=== PATIENT | female | born 1960 | race Caucasian/White ===

== ENCOUNTER → 2016-08-08 | Outpatient (CLI) | payer OTHER ==
[~2016-08-08] MED LIST: FEXO1TAB46 PO; FLUT0.15 NAE; OMEP20TA PO; OMEP40CA41 PO
--- NOTE | 2016-08-08 15:07 | MAMMOGRAPHY REPORT ---
BILATERAL DIGITAL SCREENING MAMMOGRAM TOMOSYNTHESIS WITH CAD: 08/08/2016 CLINICAL HISTORY: Routine screening. Patient has no complaints. TECHNIQUE: Breast tomosynthesis in addition to standard 2D mammography was performed. Current study was also evaluated with a Computer Aided Detection (CAD) system. COMPARISON: Comparison is made to exams dated: 08/07/2015 mammogram, 08/04/2014 mammogram, 08/03/2013 ma mmogram, 03/09/2012 mammogram, 02/26/2011 mammogram, and 02/25/2010 mammogram - [facility]. BREAST COMPOSITION: There are scattered areas of fibroglandular density in both breasts. FINDINGS: No suspicious masses, calcifications, or areas of architectural distortion are noted in e ither breast. There has been no significant interval change compared to prior exams. IMPRESSION: ACR BI-RADS CATEGORY 1: NEGATIVE There is no mammographic evidence of malignancy. A 1 year screening mammogram is recommended. The p atient will receive written notification of the results. Approximately 10% of breast cancers are not detected with mammography. A negative mammographic repor t should not delay biopsy if a clinically suggestive mass is present. Annita Waggoner M.D. ah/:08/08/2016 13:59:38 Plate Glass Grinder: Cookie Crespo RT(Vane)(M)(BD), [facility] letter sent: Normal 1/2 BI-RADS Code: ACR BI-RADS Category 1: Negative
== END | disposition home or self-care (01) ==
LOC: C.MAMM 11:06
PROVIDERS: ATTEND Family Medicine
DX: Z12.31 Encounter for screening mammogram for malignant neoplasm of breast (principal)

== ENCOUNTER → 2017-03-06 | Day surgery (SDC) | payer OTHER ==
[2017-03-05 12:03] VITALS: Ht 163.8 cm; Wt 136.4 kg
[~2017-03-06] VITALS: Ht 163.8 cm; Wt 136.4 kg
[~2017-03-06] MED LIST changes: +500ML BSSPLUS 0.5ML EPI1:1000 IRRIG ONE; +ACETAMINOPHEN 325 MG TAB PO PRN; +ATROPINE SULFATE 0.1 MG/ML 5ML SYR IV PRN; +ATROPINE SULFATE 1% OP OINT PER APPLICATION CHARGE ONE; +ATROPINE SULFATE 1% OP SOLN 2 ML BTL ONE; +BSS FLUSH ONE; +BUPIVACAINE HCL 0.75% 10 ML AMP/VIAL ONE; +CEFAZOLIN SOD 1 GM VIAL ONE; +DEXAMETHASONE SOD INJ 4 MG/ML VIAL ONE; +EpHEDrine SULFATE INJ 50 MG/ML AMP IV PRN; +EpINEphrine INJ 1MG/ML AMP 1 MG/ML AMP ONE; +FENTANYL CITRATE INJ 50 MCG/1 ML 2 ML VIAL IV PRN; +FENTANYL CITRATE INJ 50 MCG/1 ML 2 ML VIAL ONE; -FEXO1TAB46 PO; +FLUMAZENIL 0.1 MG/1 ML 10 ML VIAL IV PRN; +HYALURONIDASE HUMAN 150 UNIT/ML INJ ONE; +HYDROmorphone INJ 2 MG/ML SYR/VIAL IV PRN; +LABETALOL HCL IV 5 MG/ML 20ML IV PRN; +LACTATED RINGER'S 1000ML 1,000 ML IV SCH; +LIDOCAINE HCL 2% 2 ML VIAL (20MG/ML) ONE; +MEPERIDINE HCL 25 MG/ML CARP IV PRN; +MIDAZOLAM HCL 1 MG/ML 2ML VIAL ONE; +NALOXONE HCL 0.4 MG/1 ML VIAL/CARP IV PRN; +NEOMYCIN/POLYMYX/DEXAMETH OP OINT PER APP CHARGE ONE; +NURSING VERBAL MED ORDER ONE; +OCUCOAT 1 ML SOLN IO ONE; -OMEP20TA PO; +ONDANSETRON INJ 2 MG/ML 2 ML VIAL IV PRN; +ONDANSETRON INJ 2 MG/ML 2 ML VIAL ONE; +PHENYLEPHRINE 100MCG/ML 5ML SYR IV PRN; +POVIDONE-IODINE OP SOLN (SURGERY CNTR CHARGING ONLY) ONE; +PROPARACAINE 0.5% OP SOLN PER DROP CHARGE OPB SCH; +PROPOFOL IV EMULSION 10 MG/ML 20 ML VIAL IV ONE; +SODIUM CHLORIDE 0.9% 500ML IV SCH; +TIMOLOL MALEATE 0.5% OP SOLN PER DROP CHARGE ONE; +VANCOMYCIN HCL 1000MG/20ML VIAL ONE
[2017-03-06] MEDS: PHENYLEPHRINE HCL 2.5% OP SOLN PER DROP CHARGE OPB SCH ×2 (06:48→06:53)
[2017-03-06] MEDS: TROPICAMIDE 1% OP SOLN PER DROP CHARGE OPB SCH ×2 (06:49→06:54)
--- NOTE | 2017-03-06 06:52 | History & Physical Bridge - SC ---
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 I have examined the patient, reviewed the History & Physical and in the interval since the performance of the History & Physical I have noted the following changes of clinical significance: No changes noted
--- NOTE | 2017-03-06 09:03 | [facility] Operative Report ---
Operative Report Date of Service Mar 06, 2017. Operative Report PREOPERATIVE DIAGNOSIS: 1. Retinal detachment in the left eye. ICD 10: H33.022. 2. 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 PROCEDURE: 1. Pars plana vitrectomy, 23 gauge; Fluid-air exchange; Endolaser; Air-gas exchange with SF6 20%. All to the left eye. CPT CODE: 88351 LT + modifier 59 2. Laser of the right eye. CPT CODE: 71397 RT SURGEON: Sandip Nugent D.O. COMPLICATIONS: None. ESTIMATED BLOOD LOSS: None. SPECIMENS: None. ANESTHESIA: Retrobulbar block and general. INDICATIONS FOR PROCEDURE: Surgery is indicated to decrease risk of vision loss. CONSENT: The risks, benefits and alternatives were discussed with the patient including but not limited to decreased visual acuity, failure to achieve desired results, loss of the eye, infection, pain, glaucoma, lens changes, retinal tears, retinal detachment, the need for more procedures, drooping of the eyelid, blindness, and double vision. The patient is aware of risks and consents to the surgery. Consent is signed and on the chart. OPERATION AND FINDINGS: The patient was brought to the operating room where the patient was identified by name, date, and medical record number. The surgical site was confirmed with the informed written consent. The patient was sedated by the anesthesiology team after which a 50:50 mixture of 2% lidocaine and 0.75% bupivacaine with hyaluronidase was administered in a standard retrobulbar fashion. A total of 4 ml was administered without difficulty. Attention was first turned toward the right eye and prophylactic laser procedure was performed first. A laser indirect ophthalmoscope was used to apply laser barrier around areas of lattice degeneration and retinal defects in the right eye. After this attention was turned toward repair of the retinal detachment in the left eye. The patient was prepped and draped in the usual sterile manner for retinal surgery. A wire lid speculum was placed and an Antwan 23-gauge trocar cannula system was employed. The inferior temporal trocar cannula was first placed in an angled fashion 3.75mm posterior to the surgical limbus and the infusion cannula was inserted into this cannula after which the intravitreal position was verified prior to turning the infusion on. Two more trocar cannulas were then inserted in an angled fashion, one in the superior temporal, and one in the superior nasal quadrant both 3.75mm posterior to the surgical limbus. A light pipe and vitrector were then introduced into the eye and the BIOM wide angle viewing system was brought into place. Posterior inspection revealed a retinal detachment from 9 to 12 o'clock with the inciting retinal break at 11 o'clock. There was extensive lattice degeneration throughout the periphery. Standard core vitrectomy was performed and the vitreous was insured to be totally detached from the posterior pole with the aid of the vitrector. The vitreous base was shaved for 360 degrees. Fluid air exchange was performed and the subretinal fluid was drained through a small retinotomy site that was fashioned superior to the optic nerve. Endolaser was then used to place laser around the inciting retinal break and the drainage retinotomy as well as around all areas of lattice degeneration and defects. Next , an air gas exchange was performed with SF620% for a complete fill of the eye. The trocar cannulas were then removed and found to be air tight. The intraocular pressure was found to be within normal limits by palpation and subconjunctival injections of Kefzol and dexamethasone were administered inferiorly and superiorly. The wire lid speculum was removed. Maxitrol, atropine and timolol were applied to the surface of the eye. A light patch and shield were taped over the surface of the eye and the patient left the Operating Room in stable condition having tolerated the procedure well. DISPOSITION: A gas bracelet was placed on the patient's wrist and gas precautions reviewed as well as the positioning instructions. The patient has an appointment the following morning in the Ophthalmology Clinic. The patient is to call immediately if there are any problems overnight. I attest to the content of the Intraoperative Record and any orders documented therein. Any exceptions are noted below.
--- NOTE | 2017-03-06 09:04 | Discharge Instructions-SurgCtr ---
Discharge Instructions Date of Service Mar 06, 2017. Visit Reason for Visit: Left Eye Retinal Detachment Discharge Discharge Diagnosis / Problem: same Discharge Goals Goal(s): Improve function Activity Recommendations Activity Limitations: per Instructions/Follow-up section Anesthesia . Post Anesthesia Instructions: If you have had General Anesthesia or IV Sedation: * Do not drive today. * Resume driving when surgeon permits. * Do not make important decisions or sign legal documents today. * Call surgeon for: 1. Temperature elevations greater than 101 degrees F. 2. Uncontrollable pain. 3. Excessive bleeding. 4. Persistent nausea and vomiting. 5. Medication intolerance (nausea, vomiting or rash). * For nausea and vomiting use only clear liquids such as: tea, soda, bouillon until nausea subsides, then gradually increase diet as tolerated. * If you have any concerns or questions, call your surgeon's office. If physician is unavailable and it is an emergency, call 911 or go to the nearest emergency room. . Diet Recommendations Home Diet: resume previous diet Procedures Procedures Performed: Left Eye 23 Gauge Vitrectomy with Laser and SF6 Gas Instillation; Right Eye Laser Pending Studies Studies pending at discharge: no Medical Emergencies . Who to Call and When: Medical Emergencies: If at any time you feel your situation is an emergency, please call 911 immediately. . Non-Emergent Contact Non-Emergency issues call your: Lepidopterist . . "Provider Documentation" section prepared by Sandip Nugent. .
--- NOTE | 2017-03-06 09:28 | Anesthesia Progress Nt - [facility] ---
Anesthesia Post Op Note Date & Time Mar 06, 2017 at 09:28 Vital Signs Pain Intensity: 0 Vital Signs Past 12 Hours Date Time Temp Pulse Resp B/P (MAP) Pulse Ox O2 Delivery O2 Flow Rate FiO2 03/06/17 09:23 68 19 03/06/17 09:23 69 19 95 03/06/17 09:20 150/87 03/06/17 09:18 36.4 69 16 150/87 97 Room Air 03/06/17 09:18 67 11 94 03/06/17 09:18 67 11 03/06/17 09:15 138/83 03/06/17 09:13 65 14 98 03/06/17 09:13 65 14 03/06/17 09:10 155/91 03/06/17 09:08 74 19 03/06/17 09:08 74 19 94 03/06/17 09:05 141/87 03/06/17 09:03 68 15 99 03/06/17 09:03 70 15 03/06/17 09:00 158/81 03/06/17 08:58 71 10 99 03/06/17 08:58 69 10 03/06/17 08:57 36.3 74 16 169/94 100 Diffusion Mask 03/06/17 08:55 149/80 03/06/17 08:53 73 13 100 03/06/17 08:53 72 13 03/06/17 08:50 160/89 03/06/17 08:49 169/94 03/06/17 06:37 36.4 75 22 180/79 (112) 98 Room Air Notes Mental Status: alert / awake / arousable, participated in evaluation Pt Amnestic to Procedure: Yes Nausea / Vomiting: adequately controlled Pain: adequately controlled Airway Patency, RR, SpO2: stable & adequate BP & HR: stable & adequate Hydration State: stable & adequate Anesthetic Complications: no major complications apparent
[2017-03-06 09:33] VITALS: TEMP 36.5
[2017-03-06 09:52] VITALS: BP 159/92; PULSE 66; O2SAT 98
== END | disposition home or self-care (01) ==
LOC: X.SURG 06:12
PROVIDERS: ATTEND Ophthalmology
DX: H33.022 Retinal detachment with multiple breaks, left eye (principal); H35.411 Lattice degeneration of retina, right eye; J45.909 Unspecified asthma, uncomplicated; F32.9 Major depressive disorder, single episode, unspecified; E78.5 Hyperlipidemia, unspecified; K21.9 Gastro-esophageal reflux disease without esophagitis; Z87.891 Personal history of nicotine dependence; Z82.49 Family history of ischemic heart disease and other diseases of the circulatory system; Z83.3 Family history of diabetes mellitus; Z82.3 Family history of stroke; G47.33 Obstructive sleep apnea (adult) (pediatric); E66.9 Obesity, unspecified

== ENCOUNTER 2017-07-06 12:15 | Emergency (ER) | payer OTHER ==
[~2017-07-06] VITALS: Ht 163.8 cm; Wt 139.4 kg
[~2017-07-06 12:15] MED LIST changes: -500ML BSSPLUS 0.5ML EPI1:1000 IRRIG ONE; -ACETAMINOPHEN 325 MG TAB PO PRN; -ATROPINE SULFATE 0.1 MG/ML 5ML SYR IV PRN; -ATROPINE SULFATE 1% OP OINT PER APPLICATION CHARGE ONE; -ATROPINE SULFATE 1% OP SOLN 2 ML BTL ONE; -BSS FLUSH ONE; -BUPIVACAINE HCL 0.75% 10 ML AMP/VIAL ONE; -CEFAZOLIN SOD 1 GM VIAL ONE; -DEXAMETHASONE SOD INJ 4 MG/ML VIAL ONE; -EpHEDrine SULFATE INJ 50 MG/ML AMP IV PRN; -EpINEphrine INJ 1MG/ML AMP 1 MG/ML AMP ONE; -FENTANYL CITRATE INJ 50 MCG/1 ML 2 ML VIAL IV PRN; -FENTANYL CITRATE INJ 50 MCG/1 ML 2 ML VIAL ONE; -FLUMAZENIL 0.1 MG/1 ML 10 ML VIAL IV PRN; -HYALURONIDASE HUMAN 150 UNIT/ML INJ ONE; -HYDROmorphone INJ 2 MG/ML SYR/VIAL IV PRN; -LABETALOL HCL IV 5 MG/ML 20ML IV PRN; -LACTATED RINGER'S 1000ML 1,000 ML IV SCH; -LIDOCAINE HCL 2% 2 ML VIAL (20MG/ML) ONE; -MEPERIDINE HCL 25 MG/ML CARP IV PRN; -MIDAZOLAM HCL 1 MG/ML 2ML VIAL ONE; -NALOXONE HCL 0.4 MG/1 ML VIAL/CARP IV PRN; -NEOMYCIN/POLYMYX/DEXAMETH OP OINT PER APP CHARGE ONE; -NURSING VERBAL MED ORDER ONE; -OCUCOAT 1 ML SOLN IO ONE; -ONDANSETRON INJ 2 MG/ML 2 ML VIAL IV PRN; -ONDANSETRON INJ 2 MG/ML 2 ML VIAL ONE; -PHENYLEPHRINE 100MCG/ML 5ML SYR IV PRN; -POVIDONE-IODINE OP SOLN (SURGERY CNTR CHARGING ONLY) ONE; -PROPARACAINE 0.5% OP SOLN PER DROP CHARGE OPB SCH; -PROPOFOL IV EMULSION 10 MG/ML 20 ML VIAL IV ONE; -SODIUM CHLORIDE 0.9% 500ML IV SCH; -TIMOLOL MALEATE 0.5% OP SOLN PER DROP CHARGE ONE; -VANCOMYCIN HCL 1000MG/20ML VIAL ONE
[2017-07-06 12:35] VITALS: TEMP 36.7; Ht 163.8 cm; Wt 139.4 kg
[2017-07-06 15:06] LABS: HEMATOCRIT 43.2 % (37-47); HEMOGLOBIN 14.7 g/dL (12.0-16.0); MEAN CELL VOLUME 88.2 fL (80-100); MEAN PLATELET VOLUME 10.5 fL (7.4-10.4); PLATELET COUNT 227 K/uL (130-400); RED CELL DISTRIBUTION WIDTH CV 13.8 % (11.5-14.5); WHITE BLOOD COUNT 7.12 K/uL (4.8-10.8)
[2017-07-06 15:14] LABS: PTT PATIENT 24.5 SECONDS (21.0-31.0)
[2017-07-06 15:28] LABS: ALBUMIN 4.1 gm/dl (3.4-5.0); CALCIUM 9.5 mg/dl (8.5-10.1); CREATININE 0.97 mg/dl (0.60-1.20); POTASSIUM 3.7 mmol/L (3.5-5.1)
[2017-07-06 15:33] LABS: CKMB 0.8 ng/ml (0.5-3.6); TOTAL PROTEIN 7.8 gm/dl (6.4-8.2)
[2017-07-06] MEDS ORDERED: DEXT30TA7 PO (15:35)
--- NOTE | 2017-07-06 15:46 | DIAGNOSTIC IMAGING REPORT ---
CHEST ONE VIEW PORTABLE HISTORY: 57 years-old Female shortness of breath, chest pain acute shortness of breath with atypical chest pain COMPARISON: None available TECHNIQUE: Portable AP view of the chest FINDINGS: Cardiomediastinal and hilar silhouettes are within normal limits. No pneumothorax, pleural effusion, focal airspace consolidation or overt pulmonary edema. Bones of the chest appear grossly intact. Degenerative changes are seen about the bilateral shoulders and spine. Suggested calcific tendinosis about the left shoulder. IMPRESSION: No acute process. The above report was generated using voice recognition software. It may contain grammatical, syntax or spelling errors. Electronically signed by: Fabio Valero M.D. 07/06/2017 3:45 PM Dictated Date/Time: 07/06/2017 3:44 PM
[2017-07-06] MEDS ORDERED: ALBUT/IPRATROP 3MG/0.5MG NEB 3 ML VIAL INH STA (15:55)
[2017-07-06 16:30] LABS: INFLUENZA B ANTIGEN Neg for Influ B (NEG)
[2017-07-06] MEDS ORDERED: AZITHROMYCIN 250 MG TAB PO STA (17:06)
[2017-07-06] MEDS ORDERED: AZIT-60 PO (17:09)
--- NOTE | 2017-07-06 17:10 | EMERGENCY ROOM VISIT NOTE ---
History First contact with patient: 15:05 Chief Complaint: RESPIRATORY PROBLEMS Stated Complaint: TROUBLE BREATHING, SINUS PRESSURE Nursing Triage Summary: patient states she has had sinus pressure and slight cough for the past week. taking otc medications without relief. History of Present Illness The patient is a 57 year old female who presents to the Emergency Room via private vehicle referred by family doctor with complaints of "trouble breathing , sinus pressure". The patient states that one week ago she began with exhaustion, sinus pressure, frontal headache, chills, and left ear pain. She states that her temperature yesterday was 99.4F. There is nasal congestion and watery eyes. She also notes that since Thursday she has had some chest pressure. It is not worse with exertion. She denies any nausea, vomiting, diarrhea, constipation, rhinorrhea, hearing loss. She has been trying Mucinex without relief. She feels as though something is sitting on her chest but notes she has felt this before when she is ill. No history of heart attack. She denies any history of hypertension. She notes that she does wear CPAP at night. Review of Systems A complete 10-point Review of Systems was discussed with the patient, with pertinent positives and negatives listed in the History of Present Illness. All remaining Review of Systems questions can be considered negative unless otherwise specified. Past Medical/Surgical History GERD Social History Smoking Status: Never Smoker Alcohol Use: none Marital Status: Current/Historical Medications Scheduled Azithromycin (Zithromax), 250 MG PO DAILY Fluticasone Propionate (Nasal) (Flonase Allergy Relief), 2 SPRAYS JUNIE QAM Omeprazole (Prilosec), 40 MG PO QAM Scheduled PRN Dextromethorphan-Guaifenesin (Mucinex Dm), 1 TAB PO Q4 PRN for PRN Physical Exam Vital Signs Date Time Temp Pulse Resp B/P (MAP) Pulse Ox O2 Delivery O2 Flow Rate FiO2 07/06/17 16:20 154/100 07/06/17 14:52 74 18 179/109 97 Room Air 07/06/17 12:35 97 Room Air 07/06/17 12:35 36.7 74 18 238/108 97 Room Air Physical Exam VITAL SIGNS - Vital signs and nursing notes were reviewed. Hypertensive. This was done manually and found to be 154/100. GENERAL -57-year-old female appearing her stated age who is in no acute distress. Communicates well with provider and answers questions appropriately. SKIN - Without rashes. No meningeal or petechial rash. HEAD - NC/AT. EYES - PERRL with EOMI bilaterally. Sclera anicteric. No hyphema or subconjunctival hemorrhage. EARS - No deformities of external structures noted on gross examination bilaterally. No pain elicited with palpation of the tragus bilaterally. External auditory canals without discharge or otorrhea. Tympanic membranes pearly taylor without retraction or bulging. No fluid or purulent material visualized behind the TM. Handle of malleus, umbo, cone of light, pars tensa/ flaccid all easily visualized. NOSE - Midline and without cyanosis. No epistaxis or purulent drainage noted. Septum midline without deviation or septal hematoma noted. MOUTH/OROPHARYNX - Without perioral cyanosis. Buccal mucosa pink and moist and without leukoplakia. Tongue midline with equal elevation of palate bilaterally. No tonsillar hypertrophy, erythema, or exudates noted. Fair dentition noted. NECK - Neck with FROM. Supple to palpation. No lymphadenopathy noted. No nuchal rigidity. LUNGS - Chest wall symmetric without accessory muscle use, intercostals retractions, or central cyanosis. Normal vesicular breath sounds CTA B/L. No wheezes, rales, or rhonchi appreciated. CARDIAC - RRR with S1/S2. No murmur, rubs, or gallops appreciated. There is anterior chest tenderness to palpation. ABDOMEN - Abdominal contour normal without pulsations or visible masses. BS normoactive all four quadrants. No tenderness, palpable masses, hepatosplenomegaly, or ascites noted. EXTREMITIES - No clubbing or peripheral cyanosis. +5/5 strength noted in UE/LE bilaterally. NEUROLOGIC - Cranial nerves II through XII grossly intact. Sensory intact to light touch throughout. PSYCH - A&O, and cooperates fully with examiner. Pt is very pleasant and interacts well with examiner. Medical Decision & Procedures ER Provider Diagnostic Interpretation: CHEST ONE VIEW PORTABLE HISTORY: 57 years-old Female shortness of breath, chest pain acute shortness of breath with atypical chest pain COMPARISON: None available TECHNIQUE: Portable AP view of the chest FINDINGS: Cardiomediastinal and hilar silhouettes are within normal limits. No pneumothorax, pleural effusion, focal airspace consolidation or overt pulmonary edema. Bones of the chest appear grossly intact. Degenerative changes are seen about the bilateral shoulders and spine. Suggested calcific tendinosis about the left shoulder. IMPRESSION: No acute process. The above report was generated using voice recognition software. It may contain grammatical, syntax or spelling errors. Electronically signed by: Fabio Valero M.D. 07/06/2017 3:45 PM Dictated Date/Time: 07/06/2017 3:44 PM Laboratory Results 07/06/17 14:55 07/06/17 14:55 Test 07/06/17 14:55 07/06/17 15:03 07/06/17 15:45 Red Blood Count 4.90 M/uL (4.2-5.4) Mean Corpuscular Volume 88.2 fL (80-100) Mean Corpuscular Hemoglobin 30.0 pg (25-34) Mean Corpuscular Hemoglobin Concent 34.0 g/dl (32-36) RDW Standard Deviation 45.0 fL (36.4-46.3) RDW Coefficient of Variation 13.8 % (11.5-14.5) Mean Platelet Volume 10.5 fL (7.4-10.4) Prothrombin Time 10.6 SECONDS (9.0-12.0) Prothromb Time International Ratio 1.0 (0.9-1.1) Activated Partial Thromboplast Time 24.5 SECONDS (21.0-31.0) Partial Thromboplastin Ratio 0.9 D-Dimer 380 ug/L FEU (0-500) Anion Gap 7.0 mmol/L (3-11) Est Creatinine Clear Calc Drug Dose 92.3 ml/min Estimated GFR () 76.2 Estimated GFR (Non- 65.8 BUN/Creatinine Ratio 11.6 (10-20) Calcium Level 9.5 mg/dl (8.5-10.1) Total Bilirubin 0.4 mg/dl (0.2-1) Aspartate Amino Transf (AST/SGOT) 28 U/L (15-37) Alanine Aminotransferase (ALT/SGPT) 56 U/L (12-78) Alkaline Phosphatase 93 U/L (45-117) Total Creatine Kinase 122 U/L (26-192) Creatine Kinase MB 0.8 ng/ml (0.5-3.6) Creatine Kinase MB Ratio 0.7 (0-3.0) Total Protein 7.8 gm/dl (6.4-8.2) Albumin 4.1 gm/dl (3.4-5.0) Globulin 3.7 gm/dl (2.5-4.0) Albumin/Globulin Ratio 1.1 (0.9-2) Thyroid Stimulating Hormone (TSH) 3.280 uIu/ml (0.300-4.500) Bedside Troponin I < 0.030 ng/ml (0-0.045) Influenza Type A Antigen Neg for Influ A (NEG) Influenza Type B Antigen Neg for Influ B (NEG) Medications Administered Medications (Trade) Dose Ordered Sig/Isis Route Start Time Stop Time Status Last Admin Dose Admin Albuterol/ Ipratropium (Duoneb) 3 ml NOW STAT INH 07/06/17 15:55 07/06/17 15:56 DC 07/06/17 16:07 3 ML Medical Decision Patient was seen and evaluated as above in room C5. Review was performed of nursing notes and vital signs. After obtaining a thorough history and physical examination the above work up was performed. She presents to us today with sinus congestion, and chest pressure. No history of cardiac events. Chest x- ray obtained. Negative for acute process. Bedside EKG per my interpretation does reveal normal sinus rhythm, rate of 71 bpm. No ectopy or ischemic change. With blood work review, CBC reveals no leukocytosis or anemia. Coags normal. D-dimer negative. Metabolic panel reveals no evidence of kidney or liver failure. CK-MB, and troponin negative. TSH normal. Patient's chest pain is been ongoing since Thursday therefore this is been certainly greater than 6 hours. One negative troponin I believe is sufficient. Negative for influenza A. She was given a DuoNeb without relief. With the sinus congestion, and constitutional symptoms preceding the chest pressure, and with the chest pressure being reproducible on exam I suspect this is all likely an infection that can be treated with azithromycin. This is likely sinus infection that is causing her symptoms that likely began as viral but now may be bacterial. She is to follow with her family doctor. There is no exertional symptoms with the chest pressure. Because she has no history of underlying hypertension I will recommend she follow-up with the family doctor for review of this but do not want to initiate meds at this time as this HTN could be only while here in the emergency department. The patient was educated upon management, had questions answered prior to discharge, and was discharged home in good condition. Case was discussed with the attending physician. I attest that I have personally reviewed the patient medication list. I attest that I have reviewed the patient's blood pressure and it was found to be elevated, she is to follow with the family doctor In the evaluation and treatment of this patient the following differential diagnoses were entertained: Sinusitis, CO, influenza, PE, pericarditis, costochondritis, bronchitis, pneumonia, among others. Impression Primary Impression: Sinusitis Additional Impression: Chest discomfort Departure Information Dispostion Home / Self-Care Condition GOOD Prescriptions Azithromycin (ZITHROMAX) 250 Mg Tab 250 MG PO DAILY, #4 TAB Prov: Ajay Fletcher PA-C 07/06/17 Referrals Logan Khalil M.D. (PCP) Patient Instructions My [facility] Additional Instructions You have been treated in the Emergency Department your chest pain. Laboratory results and imaging studies have helped rule out any emergent causes for your symptoms which would warrant admission or surgery. However I do recommend follow-up with the family doctor for your symptoms, specifically the chest discomfort. Azithromycin daily. Your given the first dose here with the next dose being around dinnertime tomorrow. This is 5 days total per Please use your inhaler. Your blood pressure was found to be elevated here. I would recommend having this rechecked with the family doctor. This could be from [id number] decongestants. If it persists medication may be warranted. For pain control, you can use the following [id number] medicines : - Regular strength (325mg/tab) Tylenol (acetaminophen) 2 tabs every 4-6 hours as needed. Do not exceed 12 tablets in a 24 hour period. Avoid taking more than 3 grams (3000 mg) of Tylenol per day. This includes any other sources of acetaminophen you may take on a regular basis. - Regular strength (200 mg/tab) Advil (ibuprofen) 1-2 tabs every 4-6 hours as needed. Do not exceed a dose of 3200 mg per day. Drink plenty of water and stay well hydrated. As with any trip to the Emergency Department, you should follow-up with your Primary Care Provider from today's visit. Return to the emergency department if your symptoms persist despite treatment plan outlined above or if the following symptoms occur: Exertional chest pain, worsening chest pain, new/concerning symptoms, increased fevers, chills, worsening nausea/vomiting, blood in your stool or urine. Problem Qualifiers
[2017-07-06 17:38] VITALS: BP 156/98; PULSE 66; O2SAT 98
== END 2017-07-06 17:40 | disposition home or self-care (01) ==
LOC: C.EDB 12:18 → C.EDC 17:40
DX: J32.9 Chronic sinusitis, unspecified (principal); R07.9 Chest pain, unspecified